=== PATIENT | female | born 1955 | race Caucasian/White ===

== ENCOUNTER 2020-11-03 10:45 | Emergency (ER) | payer OTHER ==
[~2020-11-03] VITALS: Ht 157.5 cm; Wt 70.3 kg
[2020-11-03 10:54] VITALS: BP 180/81
--- NOTE | 2020-11-03 10:56 | NUR ---
65 y/o female A&OX4 BIBA S/P fall at different hospital for appointment, pt states she tripped and then attempted to drive home. Pt was unable to bear weight on left foot 10/10 aching pain constant radiating to left knee. Per medic, given 100mg fentanyl IM to left deltoid. Left knee swelling noted, pain on palpation. PMH: HTN RX: None currently, stopped taking over a year ago, no reason stated. COREY
--- NOTE | 2020-11-03 10:59 | NUR ---
microbiological laboratory technician at pt bedside.
--- NOTE | 2020-11-03 11:18 | NUR ---
Dr. Hobbs at pt bedside for evaluation.
[2020-11-03] MEDS ORDERED: MORPHINE SULFATE 4 MG/ML SYR IM ONE (11:25)
--- NOTE | 2020-11-03 11:42 | NUR ---
16 inch knee immobilizer applied to left knee, crutches adjusted to patients height supplied, and return demonstration was done. PMSC's assessed and WNL, patient tolerated splint well.
[2020-11-03 11:46] VITALS: BP 180/81
--- NOTE | 2020-11-03 11:46 | NUR ---
Patient discharged with v/s stable. Written and verbal after care instructions given and explained. Patient alert, oriented and verbalized understanding of instructions. Ambulatory with steady gait. All questions addressed prior to discharge. ID band removed. Patient advised to follow up with PMD. Rx of motrin 800mg tab TID PO , and norco 5mg-325mg 1-2tabs PO q6h given. Patient educated on indication of medication including possible reaction and side effects. Opportunity to ask questions provided and answered.
== END 2020-11-03 11:46 | disposition home or self-care (01) ==
LOC: MED 10:45
DX: M25.562 Pain in left knee (principal); E11.9 Type 2 diabetes mellitus without complications; I10 Essential (primary) hypertension; Z98.890 Other specified postprocedural states; W19.XXXA Unspecified fall, initial encounter; Y93.89 Activity, other specified; Y92.89 Other specified places as the place of occurrence of the external cause; Y99.8 Other external cause status
CPT/HCPCS: 29505; 73562; 96372; 99283; J2270

== ENCOUNTER 2022-06-11 22:35 | Emergency (ER) | payer OTHER ==
[~2022-06-11] VITALS: Ht 149.9 cm; Wt 70.3 kg
[2022-06-11 22:49] VITALS: BP 195/97
--- NOTE | 2022-06-11 23:57 | NUR ---
PT CAME TO ADMITTING WINDOW AND SAID SHE WAS LEAVING. LWBS
== END 2022-06-11 23:57 | disposition left against medical advice (07) ==
LOC: MED 22:35
DX: R10.9 Unspecified abdominal pain (principal); Z53.21 Procedure and treatment not carried out due to patient leaving prior to being seen by health care provider